=== PATIENT | female | born 1980 | race American Indian/Alaskan Native ===

== ENCOUNTER 2022-01-18 17:05 | Emergency (ER) | payer MEDICAID | END 2022-01-18 17:57 | disposition left against medical advice (07) | LOC: DL.ED 17:05 → MERGE 17:05 → DL.ED 17:57 | DX: S00.12XA Contusion of left eyelid and periocular area, initial encounter (principal); Z79.899 Other long term (current) drug therapy; Y04.0XXA Assault by unarmed brawl or fight, initial encounter | CPT/HCPCS: 70450; 70486; 72125; 99284 ==

== ENCOUNTER 2022-01-19 19:10 | Emergency (ER) | payer MEDICAID ==
[2022-01-19 23:54] LABS: ANION GAP 13.3 mEq/L (7-13)
[2022-01-20] MEDS ORDERED: SODIUM CHLORIDE 0.9% IV ONE (00:23)
[2022-01-20] MEDS ORDERED: VANCOMYCIN IV ONE (00:23)
[2022-01-20] MEDS ORDERED: SODIUM CHLORIDE 0.9% IV SCH (00:30)
[2022-01-20] MEDS ORDERED: VANCOMYCIN IV SCH (00:30)
[2022-01-20] MEDS ORDERED: Piperacillin/Tazobactam 4.5 GM in Sodium Chloride 0.9% 100 ML IV ONE (00:41)
[2022-01-20] MEDS ORDERED: Acetaminophen 500 MG Tab PO ONE (01:09)
[2022-01-20] MEDS ORDERED: Diphtheria,Pertussis(Acell),Tetanus Vaccine 0.5 ML Syringe IM ONE (03:11)
== END 2022-01-20 03:32 | disposition home or self-care (01) ==
LOC: DL.ED 19:10 → MERGE 19:10 → DL.ED 01-20 03:32
DX: S61.250A Open bite of right index finger without damage to nail, initial encounter (principal); L03.011 Cellulitis of right finger; W50.3XXA Accidental bite by another person, initial encounter
CPT/HCPCS: 36415; 73130; 80053; 83605; 85025; 87040; 90471; 90715; 96365; 96366; 96367; 99283; A9270; J2543; J3370; J7050

== ENCOUNTER 2022-03-16 18:08 | Emergency (ER) | payer MEDICAID ==
[2022-03-16] MEDS ORDERED: Sodium Chloride 0.9% 10 ML Syringe FLUSH PRN (18:32)
[2022-03-16] MEDS ORDERED: Ketorolac 30 MG/ML SDV IVPUSH ONE (18:34)
[2022-03-16] MEDS ORDERED: Sodium Chloride 0.9% 1,000 ML IV ONE ×2 (18:34→19:14)
[2022-03-16] MEDS ORDERED: Acetaminophen 500 MG Tab PO ONE (18:34)
[2022-03-16 19:25] LABS: CORONAVIRUS COVID-19 NAA NEGATIVE (NEGATIVE); RESPIRATORY SYNCYTIAL VIR NAA NEGATIVE (NEGATIVE)
[2022-03-16 19:43] LABS: CHLORIDE,CL 92 mmol/L (98-107); SODIUM,NA 129 mmol/L (136-145)
[2022-03-16 19:46] LABS: ESTIMATED GFR 73 mL/min (>=60)
[2022-03-16] MEDS ORDERED: cefTRIAXone 2 GM Vial IVPUSH ONE (19:47)
[2022-03-16] MEDS ORDERED: HYDROmorphone 0.5 MG/0.5 ML Syringe IVPUSH ONE ×2 (19:48→21:43)
[2022-03-16] MEDS ORDERED: Azithromycin 500 MG in Sodium Chloride 0.9% 250 ML IV ONE (19:48)
[2022-03-16] MEDS ORDERED: Potassium Chloride 10 MEQ Tab.ER PO ONE (20:11)
== END 2022-03-16 22:34 | disposition home or self-care (01) ==
LOC: DL.ED 18:08
DX: J10.00 Influenza due to other identified influenza virus with unspecified type of pneumonia (principal); J18.9 Pneumonia, unspecified organism; R00.0 Tachycardia, unspecified; Z20.822 Contact with and (suspected) exposure to COVID-19
CPT/HCPCS: 0241U; 36415; 71045; 80053; 81001; 83605; 83735; 84145; 84703; 85025; 86140; 87040; 87081; 87430; 93005; 96361; 96365; 96375; 96376; 99285-25; A9270-GY; J0456; J0696; J1170; J1885; J3490; J7030; J7050

== ENCOUNTER 2022-04-05 22:19 | Inpatient (IN) | payer MEDICAID ==
[2022-04-05] MEDS ORDERED: Ondansetron 4 MG Tab.DIS PO ONE (23:06)
[2022-04-05] MEDS ORDERED: Benzonatate 100 MG Cap PO ONE (23:12)
[2022-04-06] MEDS ORDERED: Sodium Chloride 0.9% 1,000 ML IV ONE (00:09)
[2022-04-06 00:17] LABS: CORONAVIRUS COVID-19 NAA NEGATIVE (NEGATIVE); RESPIRATORY SYNCYTIAL VIR NAA NEGATIVE (NEGATIVE)
[2022-04-06] MEDS ORDERED: Ketorolac 30 MG/ML SDV IVPUSH ONE (00:24)
[2022-04-06 01:03] LABS: ANION GAP 9.4 mEq/L (7-13)
[2022-04-06] MEDS ORDERED: fentaNYL 100 MCG/2 ML SDV IVPUSH ONE ×5 (01:58→08:20)
[2022-04-06] MEDS ORDERED: Lidocaine 1% 10 ML MDV ONE ×4 (04:40→05:30)
[2022-04-06] MEDS ORDERED: Lidocaine 1% 20 ML MDV INJECT ONE (04:42)
[2022-04-06] MEDS ORDERED: fentaNYL 100 MCG/2 ML SDV ONE (05:04)
[2022-04-06] MEDS ORDERED: Midazolam 1 MG/ML 2 ML SDV ONE (05:12)
[2022-04-06] MEDS ORDERED: Midazolam 1 MG/ML 2 ML SDV IVPUSH ONE ×2 (05:58→06:00)
[2022-04-06] MEDS ORDERED: Ondansetron 4 MG/2 ML SDV IVPUSH ONE (06:30)
[2022-04-06] MEDS ORDERED: Acetaminophen/oxyCODONE 325-5 MG Tab PO ONE (06:30)
[2022-04-06] MEDS ORDERED: HYDROmorphone 0.5 MG/0.5 ML Syringe IVPUSH PRN (09:19)
[2022-04-06] MEDS ORDERED: Ondansetron 4 MG Tab.DIS PO PRN (10:52)
[2022-04-06] MEDS ORDERED: Albuterol 0.083% 2.5 MG/3 ML Neb Soln NEB PRN (10:52)
[2022-04-06] MEDS ORDERED: Acetaminophen/HYDROcodone 325-10 MG Tab PO PRN (10:52)
[2022-04-06] MEDS ORDERED: Sodium Chloride 0.9% 10 ML Syringe FLUSH PRN (10:52)
[2022-04-06] MEDS ORDERED: Docusate Sodium 100 MG Cap PO PRN (10:52)
[2022-04-06] MEDS ORDERED: Ondansetron 4 MG/2 ML SDV IVPUSH PRN (10:52)
[2022-04-06] MEDS ORDERED: Acetaminophen 325 MG Tab PO PRN (10:52)
[2022-04-06] MEDS ORDERED: HYDROmorphone 1 MG/ML Syringe IVPUSH ONE (12:00)
[2022-04-06] MEDS: Acetaminophen/HYDROcodone 325-10 MG Tab PO SCH ×4 (12:11→23:45)
[2022-04-06] MEDS: Heparin Sodium 5,000 Units/ML Vial SUBCUT SCH ×2 (13:27→22:52)
[2022-04-06] MEDS: Cefepime 2 GM Vial IVPUSH SCH ×2 (13:27→22:54)
[2022-04-06] MEDS: HYDROmorphone 1 MG/ML Syringe IVPUSH PRN ×5 (14:24→22:35)
[2022-04-06] MEDS: Sodium Chloride 0.9% 10 ML Syringe FLUSH SCH (22:55)
[2022-04-07] MEDS: HYDROmorphone 1 MG/ML Syringe IVPUSH PRN ×7 (01:16→13:42)
[2022-04-07] MEDS: Acetaminophen/HYDROcodone 325-10 MG Tab PO SCH ×3 (03:30→11:15)
[2022-04-07] MEDS: Heparin Sodium 5,000 Units/ML Vial SUBCUT SCH ×2 (05:44→13:42)
[2022-04-07 06:53] LABS: ANION GAP 7.8 mEq/L (7-13)
[2022-04-07] MEDS ORDERED: Iopamidol 612 MG/ML 100 ML Bottle IVPUSH ONE (07:55)
[2022-04-07] MEDS ORDERED: Acetaminophen/HYDROcodone 325-10 MG Tab PO ONE (09:15)
[2022-04-07] MEDS: Cefepime 2 GM Vial IVPUSH SCH (09:49)
[2022-04-07] MEDS: Sodium Chloride 0.9% 10 ML Syringe FLUSH SCH (09:50)
== END 2022-04-07 15:03 | DRG 871 ==
LOC: DL.ED 22:19 → DL.MS 04-06 10:51
PROVIDERS: ADMIT Hospitalist; ATTEND Hospitalist
PROC: 0W9B30Z Drainage of Left Pleural Cavity with Drainage Device, Percutaneous Approach (ICD-10-PCS; principal; 2022-04-06)
PROC: 3E03329 Introduction of Other Anti-infective into Peripheral Vein, Percutaneous Approach (ICD-10-PCS; 2022-04-06)
DX: A40.3 Sepsis due to Streptococcus pneumoniae (principal); J13 Pneumonia due to Streptococcus pneumoniae; J90 Pleural effusion, not elsewhere classified; R04.2 Hemoptysis; Y95 Nosocomial condition; Z20.822 Contact with and (suspected) exposure to COVID-19; Z28.9 Immunization not carried out for unspecified reason
CPT/HCPCS: 0241U; 32551; 36415; 71045; 71046; 71250; 71260; 74160; 80048; 80053; 83605; 85025; 86140; 87070; 87077; 96361; 96365; 96366; 96375; 96376; 99223; 99239; 99285-25; A9270-GY; J0692; J1170; J1644; J1885; J2250; J2405; J3010; J3370; J3490; J7030; J7050; Q9967

== ENCOUNTER 2022-06-07 21:44 | Emergency (ER) | payer MEDICAID ==
[2022-06-08 00:07] LABS: AMPHETAMINES,URINE NEGATIVE (NEGATIVE); BARBITURATES,URINE NEGATIVE (NEGATIVE); BENZODIAZEPINE,URINE NEGATIVE (NEGATIVE); MDMA (ECSTASY), URINE NEGATIVE (NEGATIVE); METHADONE,URINE NEGATIVE (NEGATIVE); METHAMPHETAMINES,URINE POSITIVE (NEGATIVE); OPIATES,URINE NEGATIVE (NEGATIVE); OXYCODONE,URINE POSITIVE (NEGATIVE); PHENCYCLIDINE,URINE NEGATIVE (NEGATIVE); TCA,URINE NEGATIVE (NEGATIVE)
== END 2022-06-07 23:49 ==
LOC: DL.ED 21:44
DX: F10.920 Alcohol use, unspecified with intoxication, uncomplicated (principal); Z88.8 Allergy status to other drugs, medicaments and biological substances; Z79.899 Other long term (current) drug therapy
CPT/HCPCS: 80305-QW; 81001; 87086; 87088; 87186; 99283

== ENCOUNTER 2022-09-30 03:43 | Emergency (ER) | payer SELFPAY ==
[2022-09-30] MEDS ORDERED: methylPREDNISolone Sodium Succinate 125 MG/2 ML SDV IVPUSH ONE (03:57)
[2022-09-30] MEDS ORDERED: Sodium Chloride 0.9% 10 ML Syringe FLUSH PRN (03:57)
[2022-09-30] MEDS ORDERED: Albuterol/Ipratropium 3.0-0.5 MG/3 ML Neb Soln NEB ONE ×2 (03:57→04:41)
[2022-09-30 04:11] LABS: BASOPHILS PERCENT AUTO 0.2 % (0.0-1.0); EOSINOPHILS PERCENT AUTO 2.5 % (1.0-3.0); HEMATOCRIT 38.2 % (37.0-47.0); HEMOGLOBIN 13.3 g/dL (12.0-16.0); LYMPHOCYTES PERCENT AUTO 39.4 % (20.5-50.1); MEAN CORPUSCULAR HEMOGLOBIN 29.2 pg (27.0-34.0); MEAN CORPUSCULAR HGB CONC 34.8 g/dL (33.0-35.0); MEAN CORPUSCULAR VOLUME 83.8 fL (80-100); MONOCYTES PERCENT AUTO 8.3 % (2-8); NEUTROPHILS PERCENT AUTO 49.6 % (42.2-75.2); PLATELET COUNT,PLT 243 10^3/uL (150-450); RED BLOOD CELL COUNT 4.56 10^6/uL (4.2-5.4); WHITE BLOOD CELL COUNT,WBC 5.5 10^3/uL (5.0-10.0)
[2022-09-30 04:31] LABS: INR 1.1 (0.9-1.2); PTT,PARTIAL THROMBOPLSTIN TIME 27.3 SEC (22.0-34.0)
[2022-09-30 04:36] LABS: A/G RATIO 0.7; ALANINE AMINOTRANSFERASE,ALT 75 U/L (14-59); ALBUMIN 3.8 g/dL (3.4-5.0); ALKALINE PHOSPHATASE 90 U/L (46-116); ANION GAP 14.2 mEq/L (7-13); ASPARTATE AMNIOTRANSFERASE,AST 102 U/L (15-37); BILIRUBIN TOTAL 1.1 mg/dL (0.2-1.0); BLOOD UREA NITROGEN,BUN 3 mg/dL (7-18); BUN/CREATININE RATIO 3.7 (No establ ref range); CALCIUM 8.6 mg/dL (8.5-10.1); CARBON DIOXIDE,CO2 27 mmol/L (21-32); CHLORIDE,CL 99 mmol/L (98-107); CREATININE 0.81 mg/dL (0.55-1.02); ETHANOL BLOOD MEDICAL 115 mg/dL (0); GLUCOSE RANDOM 94 mg/dL (70-99); POTASSIUM,K 3.2 mmol/L (3.5-5.1); PROTEIN TOTAL,TP 8.9 g/dL (6.4-8.2); SODIUM,NA 137 mmol/L (136-145)
[2022-09-30 04:42] LABS: C-REACTIVE PROTEIN < 0.2 mg/dL (0.0-0.9); ESTIMATED GFR 92 mL/min (>=60)
[2022-09-30] MEDS ORDERED: Azithromycin 250 MG Tab PO ONE (04:50)
[2022-09-30 04:54] LABS: LACTIC ACID 2.1 mmol/L (0.4-2.0)
== END 2022-09-30 04:57 | disposition home or self-care (01) ==
LOC: DL.ED 03:43
DX: J45.901 Unspecified asthma with (acute) exacerbation (principal); F17.210 Nicotine dependence, cigarettes, uncomplicated; Z88.8 Allergy status to other drugs, medicaments and biological substances; Z20.822 Contact with and (suspected) exposure to COVID-19
CPT/HCPCS: 36415; 71045; 80053; 80307; 83605; 85025; 85610; 85730; 86140; 87040; 87804; 96374; 99284; 99285-25; A9270-GY; J2930; J3490; J7620-GY; U0002

== ENCOUNTER 2025-01-08 16:10 | Emergency (ER) | payer MEDICAID, OTHER ==
[2025-01-08] MEDS ORDERED: Sodium Chloride 0.9% 10 ML Syringe FLUSH PRN (16:29)
[2025-01-08 16:40] LABS: BASOPHILS PERCENT AUTO 0.2 % (0.0-1.0); EOSINOPHILS PERCENT AUTO 0.5 % (1.0-3.0); LYMPHOCYTES PERCENT AUTO 11.3 % (20.5-50.1); MONOCYTES PERCENT AUTO 21.6 % (2-8); NEUTROPHILS PERCENT AUTO 66.4 % (42.2-75.2); PLATELET COUNT,PLT 192 10^3/uL (150-450); RED BLOOD CELL COUNT 3.57 10^6/uL (4.2-5.4); WHITE BLOOD CELL COUNT,WBC 8.6 10^3/uL (5.0-10.0)
[2025-01-08 16:58] LABS: B-TYPE NATRIURETIC PEPTIDE,BNP 84 pg/ml (0-100)
[2025-01-08] MEDS: MVI, Adult with Vitamin K 10 ML, Folic Acid 1 MG, Thiamine 100 MG in Lactated Ringers 1... IV ONE (17:04)
[2025-01-08 17:14] LABS: LACTIC ACID 1.8 mmol/L (0.4-2.0)
[2025-01-08 17:16] LABS: INR 2.7 (0.9-1.2); PTT,PARTIAL THROMBOPLSTIN TIME 40.0 SEC (22.0-34.0)
[2025-01-08 17:22] LABS: ALANINE AMINOTRANSFERASE,ALT 18 U/L (14-59); ASPARTATE AMNIOTRANSFERASE,AST 75 U/L (15-37); BILIRUBIN TOTAL 24.4 mg/dL (0.2-1.0); BLOOD UREA NITROGEN,BUN 2 mg/dL (7-18); CARBON DIOXIDE,CO2 29 mmol/L (21-32); CHLORIDE,CL 97 mmol/L (98-107); CREATININE 0.56 mg/dL (0.55-1.02); EST CRCL DRUG DOSING (CG) 112.95 mL/min; GLUCOSE RANDOM 116 mg/dL (70-99); POTASSIUM,K 2.8 mmol/L (3.5-5.1); PROTEIN TOTAL,TP 6.5 g/dL (6.4-8.2); SODIUM,NA 133 mmol/L (136-145)
[2025-01-08 17:25] LABS: A/G RATIO 0.59; ESTIMATED GFR 114 mL/min (>=60); ETHANOL BLOOD MEDICAL < 3 mg/dL (0)
[2025-01-08] MEDS: Iopamidol 612 MG/ML 100 ML Bottle IVPUSH ONE (17:36)
[2025-01-08] MEDS: NS with KCl 40mEq 1,000 ML IV SCH (18:04)
[2025-01-08 18:18] LABS: AMPHETAMINES,URINE NEGATIVE (NEGATIVE); BARBITURATES,URINE NEGATIVE (NEGATIVE); MDMA (ECSTASY), URINE NEGATIVE (NEGATIVE); METHAMPHETAMINES,URINE NEGATIVE (NEGATIVE); OPIATES,URINE NEGATIVE (NEGATIVE); OXYCODONE,URINE NEGATIVE (NEGATIVE); PHENCYCLIDINE,URINE NEGATIVE (NEGATIVE); TCA,URINE NEGATIVE (NEGATIVE)
== END 2025-01-08 21:45 ==
LOC: DL.ED 16:10
DX: K70.0 Alcoholic fatty liver (principal); F10.10 Alcohol abuse, uncomplicated; E87.6 Hypokalemia; E80.6 Other disorders of bilirubin metabolism; R79.89 Other specified abnormal findings of blood chemistry; Z88.8 Allergy status to other drugs, medicaments and biological substances; Z79.899 Other long term (current) drug therapy
CPT/HCPCS: 36415; 71045; 74177; 80053; 80305; 80307; 82248; 83605; 83690; 83735; 83880; 84484; 84703; 85025; 85610; 85730; 86140; 87040; 93005; 96365; 96366; 96367; 99285; J1808; J3411; J3480; J7120; Q9967; J3490

== ENCOUNTER 2025-01-26 18:57 | Inpatient (IN) | payer MEDICAID ==
[2025-01-26 19:23] LABS: BASOPHILS PERCENT AUTO 0.2 % (0.0-1.0); EOSINOPHILS PERCENT AUTO 0.2 % (1.0-3.0); LYMPHOCYTES PERCENT AUTO 7.1 % (20.5-50.1); MONOCYTES PERCENT AUTO 5.6 % (2-8); NEUTROPHILS PERCENT AUTO 86.9 % (42.2-75.2); PLATELET COUNT,PLT 152 10^3/uL (150-450); RED BLOOD CELL COUNT 3.38 10^6/uL (4.2-5.4); WHITE BLOOD CELL COUNT,WBC 12.9 10^3/uL (5.0-10.0)
[2025-01-26 19:37] LABS: ALANINE AMINOTRANSFERASE,ALT 73 U/L (14-59); ASPARTATE AMNIOTRANSFERASE,AST 112 U/L (15-37); BILIRUBIN TOTAL 13.4 mg/dL (0.2-1.0); BLOOD UREA NITROGEN,BUN 10 mg/dL (7-18); CARBON DIOXIDE,CO2 30 mmol/L (21-32); CHLORIDE,CL 100 mmol/L (98-107); CREATININE 0.75 mg/dL (0.55-1.02); EST CRCL DRUG DOSING (CG) 84.34 mL/min; GLUCOSE RANDOM 111 mg/dL (70-99); POTASSIUM,K 3.6 mmol/L (3.5-5.1); PROTEIN TOTAL,TP 6.2 g/dL (6.4-8.2); SODIUM,NA 139 mmol/L (136-145)
[2025-01-26 19:38] LABS: A/G RATIO 0.48; ESTIMATED GFR 99 mL/min (>=60); ETHANOL BLOOD MEDICAL < 3 mg/dL (0)
[2025-01-26 19:43] LABS: B-TYPE NATRIURETIC PEPTIDE,BNP 126 pg/ml (0-100)
[2025-01-26 19:45] LABS: INR 1.4 (0.9-1.2); LACTIC ACID 2.7 mmol/L (0.4-2.0); PTT,PARTIAL THROMBOPLSTIN TIME 28.1 SEC (22.0-34.0)
[2025-01-26 19:46] LABS: D-DIMER QUANTITATIVE 1180.0 ng/mL (0-400)
[2025-01-26] MEDS: Iopamidol 612 MG/ML 100 ML Bottle IVPUSH ONE (19:49)
[2025-01-26 19:50] LABS: APPEARANCE,URINE CLEAR (CLEAR); GLUCOSE,URINE 100 (NEGATIVE); OCCULT BLOOD,URINE TRACE-INTACT (NEGATIVE)
[2025-01-26 19:57] LABS: AMPHETAMINES,URINE NEGATIVE (NEGATIVE); BARBITURATES,URINE NEGATIVE (NEGATIVE); MDMA (ECSTASY), URINE NEGATIVE (NEGATIVE); METHAMPHETAMINES,URINE NEGATIVE (NEGATIVE); OPIATES,URINE POSITIVE (NEGATIVE); PHENCYCLIDINE,URINE NEGATIVE (NEGATIVE); TCA,URINE NEGATIVE (NEGATIVE)
[2025-01-26 19:58] LABS: OXYCODONE,URINE POSITIVE (NEGATIVE)
[2025-01-26 20:02] LABS: EPITHELIAL CELLS,URINE FEW /HPF (NOT SEEN)
[2025-01-26] MEDS: metroNIDAZOLE/Normal Saline 500 MG in Premix Bag 1 BAG IV ONE (20:17)
[2025-01-26] MEDS ORDERED: Ondansetron 4 MG/2 ML SDV IVPUSH PRN (22:20)
[2025-01-26 22:48] LABS: HCG QUALITATIVE,SERUM NEGATIVE (NEGATIVE)
[2025-01-26 23:03] LABS: IRON,FE 133.0 ug/dL (50-170); PERCENT FE SATURATION 78.7 % (20.0-50.0)
[2025-01-26] MEDS: Lactulose Soln 10 GM/15 ML 30 ML UD Cup PO SCH (23:27)
[2025-01-26 23:29] LABS: FOLIC ACID 6.9 ng/mL (8.6-58.9); GAMMA GLUTAMYL TRANSFERASE,GGT 124.0 U/L (5-55)
[2025-01-26] MEDS: Albumin Human 100 GM in Premix Bag 1 BAG IV ONE (23:29)
[2025-01-27 02:05] LABS: APPEARANCE,URINE CLEAR (CLEAR); GLUCOSE,URINE NEGATIVE (NEGATIVE); OCCULT BLOOD,URINE NEGATIVE (NEGATIVE)
[2025-01-27] MEDS: Meropenem 1 GM SDV IVPUSH SCH (05:10)
[2025-01-27] MEDS: Heparin Sodium 5,000 Units/ML Vial SUBCUT SCH (05:10)
[2025-01-27 06:36] LABS: PLATELET COUNT,PLT 122 10^3/uL (150-450); RED BLOOD CELL COUNT 2.62 10^6/uL (4.2-5.4); WHITE BLOOD CELL COUNT,WBC 12.2 10^3/uL (5.0-10.0)
[2025-01-27 06:42] LABS: BASOPHILS PERCENT AUTO 0.1 % (0.0-1.0); EOSINOPHILS PERCENT AUTO 0.4 % (1.0-3.0); LYMPHOCYTES PERCENT AUTO 7.2 % (20.5-50.1); MONOCYTES PERCENT AUTO 6.8 % (2-8); NEUTROPHILS PERCENT AUTO 85.5 % (42.2-75.2)
[2025-01-27 06:48] LABS: INR 1.6 (0.9-1.2)
[2025-01-27 06:50] LABS: BILIRUBIN DIRECT 6.9 mg/dL (0.0-0.2); BILIRUBIN INDIRECT 3.3; BILIRUBIN TOTAL 10.2 mg/dL (0.2-1.0); BLOOD UREA NITROGEN,BUN 8.0 mg/dL (7-18); CARBON DIOXIDE,CO2 26.0 mmol/L (21-32); CHLORIDE,CL 103.0 mmol/L (98-107); CREATININE 0.51 mg/dL (0.55-1.02); EST CRCL DRUG DOSING (CG) 124.03 mL/min; GLUCOSE RANDOM 99.0 mg/dL (70-99); PHOSPHORUS 3.0 mg/dL (2.6-4.7); POTASSIUM,K 3.2 mmol/L (3.5-5.1); PROTEIN TOTAL,TP 5.7 g/dL (6.4-8.2); SODIUM,NA 139.0 mmol/L (136-145)
[2025-01-27 06:51] LABS: A/G RATIO 1.04; ALANINE AMINOTRANSFERASE,ALT 52.0 U/L (14-59); ASPARTATE AMNIOTRANSFERASE,AST 69.0 U/L (15-37); ESTIMATED GFR 117.0 mL/min (>=60)
[2025-01-27 06:59] LABS: BAND PERCENT MAN 1 %; LYMPHOCYTES PERCENT MAN 9 % (20-50); MONOCYTES PERCENT MAN 5 % (2-8); SEG NEUTROPHILS PERCENT MAN 85 % (42-75)
[2025-01-27] MEDS: Potassium Chloride 20 MEQ in Premix Bag 1 BAG IV ONE (10:32)
[2025-01-28 06:29] LABS: EOSINOPHILS PERCENT AUTO 1.8 % (1.0-3.0); LYMPHOCYTES PERCENT AUTO 8.2 % (20.5-50.1); MONOCYTES PERCENT AUTO 8.7 % (2-8); NEUTROPHILS PERCENT AUTO 81.0 % (42.2-75.2); PLATELET COUNT,PLT 129 10^3/uL (150-450); RED BLOOD CELL COUNT 2.89 10^6/uL (4.2-5.4); WHITE BLOOD CELL COUNT,WBC 11.9 10^3/uL (5.0-10.0)
[2025-01-28 06:33] LABS: BASOPHILS PERCENT AUTO 0.3 % (0.0-1.0)
[2025-01-28 06:43] LABS: A/G RATIO 0.86; ALANINE AMINOTRANSFERASE,ALT 49.0 U/L (14-59); ASPARTATE AMNIOTRANSFERASE,AST 65.0 U/L (15-37); BILIRUBIN DIRECT 6.4 mg/dL (0.0-0.2); BILIRUBIN INDIRECT 2.8; BILIRUBIN TOTAL 9.2 mg/dL (0.2-1.0); BLOOD UREA NITROGEN,BUN 8.0 mg/dL (7-18); CARBON DIOXIDE,CO2 26.0 mmol/L (21-32); CHLORIDE,CL 106.0 mmol/L (98-107); CREATININE 0.52 mg/dL (0.55-1.02); EST CRCL DRUG DOSING (CG) 121.64 mL/min; GLUCOSE RANDOM 104.0 mg/dL (70-99); POTASSIUM,K 4.2 mmol/L (3.5-5.1); SODIUM,NA 140.0 mmol/L (136-145)
[2025-01-28 06:44] LABS: ESTIMATED GFR 116.0 mL/min (>=60)
[2025-01-28 06:45] LABS: PROTEIN TOTAL,TP 5.4 g/dL (6.4-8.2)
[2025-01-28] MEDS: Folic Acid 50 MG/10 ML MDV ONE (09:34)
[2025-01-28] MEDS: Albumin Human 50 GM in Premix Bag 1 BAG IV ONE ×2 (12:07→16:46)
[2025-01-29 06:20] LABS: PLATELET COUNT,PLT 131 10^3/uL (150-450); RED BLOOD CELL COUNT 2.78 10^6/uL (4.2-5.4); WHITE BLOOD CELL COUNT,WBC 10.5 10^3/uL (5.0-10.0)
[2025-01-29 06:38] LABS: BASOPHILS PERCENT AUTO 0.2 % (0.0-1.0); EOSINOPHILS PERCENT AUTO 1.3 % (1.0-3.0); LYMPHOCYTES PERCENT AUTO 10.8 % (20.5-50.1); MONOCYTES PERCENT AUTO 7.0 % (2-8); NEUTROPHILS PERCENT AUTO 80.7 % (42.2-75.2)
[2025-01-29 06:42] LABS: A/G RATIO 1.24; ALANINE AMINOTRANSFERASE,ALT 44.0 U/L (14-59); ASPARTATE AMNIOTRANSFERASE,AST 59.0 U/L (15-37); BILIRUBIN DIRECT 5.9 mg/dL (0.0-0.2); BILIRUBIN INDIRECT 3.4; BILIRUBIN TOTAL 9.3 mg/dL (0.2-1.0); BLOOD UREA NITROGEN,BUN 9.0 mg/dL (7-18); CARBON DIOXIDE,CO2 26.0 mmol/L (21-32); CHLORIDE,CL 106.0 mmol/L (98-107); CREATININE 0.44 mg/dL (0.55-1.02); EST CRCL DRUG DOSING (CG) 143.76 mL/min; GLUCOSE RANDOM 91.0 mg/dL (70-99); POTASSIUM,K 4.0 mmol/L (3.5-5.1); PROTEIN TOTAL,TP 5.6 g/dL (6.4-8.2); SODIUM,NA 141.0 mmol/L (136-145)
[2025-01-29 06:43] LABS: ESTIMATED GFR 121.0 mL/min (>=60)
[2025-01-29 06:47] LABS: ALPHA-1-ANTITRYPSN 189 mg/dL (90-200)
[2025-01-29 07:04] LABS: SEG NEUTROPHILS PERCENT MAN 83 % (42-75)
[2025-01-29 07:05] LABS: EOSINOPHILS PERCENT MAN 2 % (1-3); LYMPHOCYTES PERCENT MAN 11 % (20-50); MONOCYTES PERCENT MAN 4 % (2-8)
[2025-01-29] MEDS: Sodium Chloride 0.9% 10 ML Syringe FLUSH PRN (09:23)
[2025-01-29 13:47] LABS: HAV AB IGM Negative (Negative); HBC IGM Negative (Negative); HEP B SURG AG Negative (Negative); HEP C AB BY CIA High Pos (Negative); HEP C AB BY CIA INDEX >11.00 IV
[2025-01-31 05:46] LABS: HEP C QNT BY NAAT (IU/mL) Not Detected; HEP C QNT BY NAAT (log IU/mL) Not Detected log IU/mL; HEP C QNT BY NAAT INTERP Not Detected (Not Detected)
== END 2025-01-29 13:00 | disposition home or self-care (01) | DRG 871 ==
LOC: DL.ED 18:57 → DL.MS 21:33
PROVIDERS: ADMIT Internal Medicine; ATTEND Internal Medicine
DX: A41.9 Sepsis, unspecified organism (principal); K65.2 Spontaneous bacterial peritonitis; E87.20 Acidosis, unspecified; E44.1 Mild protein-calorie malnutrition; K83.09 Other cholangitis; R65.20 Severe sepsis without septic shock; K81.9 Cholecystitis, unspecified; E87.6 Hypokalemia; H54.7 Unspecified visual loss; F41.9 Anxiety disorder, unspecified; F32.A Depression, unspecified; K70.31 Alcoholic cirrhosis of liver with ascites; E53.8 Deficiency of other specified B group vitamins; K75.4 Autoimmune hepatitis; K72.10 Chronic hepatic failure without coma; E80.6 Other disorders of bilirubin metabolism; F10.21 Alcohol dependence, in remission; Z79.2 Long term (current) use of antibiotics; Z79.899 Other long term (current) drug therapy; Z79.891 Long term (current) use of opiate analgesic; Z98.51 Tubal ligation status; Z98.890 Other specified postprocedural states; Z68.28 Body mass index [BMI] 28.0-28.9, adult
CPT/HCPCS: 36415; 74177; 80048; 80053; 80074; 80076; 80305-QW; 80307; 81001; 81003; 82103; 82140; 82272; 82607; 82746; 82947; 82977; 83540; 83550; 83605; 83690; 83735; 83880; 84100; 84145; 84703; 85025; 85379; 85610; 85651; 85730; 86140; 87040; 87081; 87500; 87522; 96365; 96375; 99223; 99233; 99239; 99285; 99285-25; A9270-GY; J0612; J0696; J0878; J1644; J1808; J1836; J2185; J2270; J3480; J7030; J7512; P9047; Q9967

== ENCOUNTER 2025-02-03 09:22 | Emergency (ER) | payer MEDICAID ==
[2025-02-03 09:57] LABS: BASOPHILS PERCENT AUTO 0.2 % (0.0-1.0); EOSINOPHILS PERCENT AUTO 2.0 % (1.0-3.0); LYMPHOCYTES PERCENT AUTO 14.9 % (20.5-50.1); MONOCYTES PERCENT AUTO 9.6 % (2-8); NEUTROPHILS PERCENT AUTO 73.3 % (42.2-75.2); PLATELET COUNT,PLT 146 10^3/uL (150-450); RED BLOOD CELL COUNT 3.33 10^6/uL (4.2-5.4); WHITE BLOOD CELL COUNT,WBC 12.2 10^3/uL (5.0-10.0)
[2025-02-03 10:16] LABS: ALANINE AMINOTRANSFERASE,ALT 61 U/L (14-59); ASPARTATE AMNIOTRANSFERASE,AST 115 U/L (15-37); BILIRUBIN TOTAL 8.2 mg/dL (0.2-1.0); BLOOD UREA NITROGEN,BUN 7 mg/dL (7-18); CARBON DIOXIDE,CO2 28 mmol/L (21-32); CHLORIDE,CL 102 mmol/L (98-107); CREATININE 0.78 mg/dL (0.55-1.02); EST CRCL DRUG DOSING (CG) 81.09 mL/min; GLUCOSE RANDOM 89 mg/dL (70-99); POTASSIUM,K 3.2 mmol/L (3.5-5.1); PROTEIN TOTAL,TP 6.7 g/dL (6.4-8.2); SODIUM,NA 140 mmol/L (136-145)
[2025-02-03 10:18] LABS: A/G RATIO 0.81; ESTIMATED GFR 95 mL/min (>=60); ETHANOL BLOOD MEDICAL < 3 mg/dL (0)
[2025-02-03 10:19] LABS: LACTIC ACID 1.8 mmol/L (0.4-2.0)
[2025-02-03] MEDS: Potassium Chloride 10 MEQ Tab.ER PO ONE (11:07)
[2025-02-03] MEDS: Acetaminophen/oxyCODONE 325-5 MG Tab PO ONE (11:35)
[2025-02-03 11:51] LABS: APPEARANCE,URINE CLEAR (CLEAR); GLUCOSE,URINE NEGATIVE (NEGATIVE); OCCULT BLOOD,URINE NEGATIVE (NEGATIVE)
[2025-02-03 11:55] LABS: BARBITURATES,URINE NEGATIVE (NEGATIVE); MDMA (ECSTASY), URINE NEGATIVE (NEGATIVE); METHAMPHETAMINES,URINE NEGATIVE (NEGATIVE); OPIATES,URINE NEGATIVE (NEGATIVE); OXYCODONE,URINE POSITIVE (NEGATIVE); PHENCYCLIDINE,URINE NEGATIVE (NEGATIVE); TCA,URINE NEGATIVE (NEGATIVE)
== END 2025-02-03 12:31 | disposition home or self-care (01) ==
LOC: DL.ED 09:22
DX: K70.31 Alcoholic cirrhosis of liver with ascites (principal); F15.10 Other stimulant abuse, uncomplicated; Z79.899 Other long term (current) drug therapy; Z88.0 Allergy status to penicillin; Z88.8 Allergy status to other drugs, medicaments and biological substances
CPT/HCPCS: 36415; 80053; 80305; 80307; 81003; 82140; 83605; 83735; 85025; 96360; 99284; A9270; J7030